=== PATIENT | female | born 1985 | race Caucasian/White ===

== ENCOUNTER 2017-07-10 04:00 | Inpatient (IN) | payer BC, MEDICAID ==
[2017-07-10 05:25] LABS: ADD MAN DIFF? NO
[2017-07-10 05:26] LABS: BASOPHILS % 0.4 % (0.0-2.0); EOSINOPHILS % 0.3 % (0.0-7.0); HEMATOCRIT 36.6 % (37.0-47.0); HEMOGLOBIN 12.3 g/dl (12.0-16.0); LYMPHOCYTES # 2.1 10^3/ul (0.8-2.9); LYMPHOCYTES % 19.2 % (15.0-51.0); MEAN CORPUSCULAR HEMOGLOBIN 30.4 pg (29.0-33.0); MEAN CORPUSCULAR HGB CONC 33.6 g/dl (32.0-37.0); MEAN CORPUSCULAR VOLUME 90.6 fl (82.0-101.0); MEAN PLATELET VOLUME 11.2 fl (7.4-10.4); MONOCYTE # 0.5 10^3/ul (0.3-0.9); MONOCYTES % 4.6 % (0.0-11.0); NEUTROPHIL # 8.2 10^3/ul (1.6-7.5); NEUTROPHILS % 74.2 % (39.0-77.0); PLATELET COUNT 216 10^3/UL (140-415); RED BLOOD COUNT 4.04 10^6/ul (4.20-5.40); RED CELL DISTRIBUTION WIDTH 14.2 % (11.5-14.5)
[2017-07-10] MEDS ORDERED: METHYLERGONOVINE 0.2 MG INJ IM ×2 (05:30→23:00)
[2017-07-10] MEDS ORDERED: OXYTOCIN 30 UNITS/LR 500 ML IV ×4 (05:30→23:00)
[2017-07-10] MEDS ORDERED: CARBOPROST 250 MCG INJ IM ×2 (05:30→23:00)
[2017-07-10] MEDS ORDERED: IBUPROFEN 600 MG TAB PO ×2 (05:30→23:00)
[2017-07-10] MEDS ORDERED: BUTORPHANOL 2 MG INJ IV (05:30)
[2017-07-10] MEDS ORDERED: MISOPROSTOL 200 MCG TAB PR ×2 (05:30→23:00)
[2017-07-10] MEDS ORDERED: LIDOCAINE 1% (MPF) 30 ML INJ INJ (05:30)
[2017-07-10 05:49] LABS: INR 0.92; PROTIME 12.4 Sec (11.9-14.9)
[2017-07-10] MEDS: FAMOTIDINE 20 MG INJ IV (05:52)
[2017-07-10] MEDS: LACTATED RINGER'S 1,000 ML IV ×6 (05:52→22:55)
[2017-07-10 06:23] LABS: PARTIAL THROMBOPLASTIN TIME 24.5 Sec (25.0-35.0)
[2017-07-10 06:29] LABS: HEPATITIS B SURFACE ANTIGEN NEGATIVE (NEGATIVE)
[2017-07-10] MEDS ORDERED: FENTAnyl 2MCG/ML-ROPIV 0.2% 100 ML (06:40)
[2017-07-10] MEDS ORDERED: LIDOCAINE 2% (SDV) 5 ML INJ (07:00)
[2017-07-10] MEDS ORDERED: NALOXONE (0.4 MG/ML) INJ IV ×2 (07:00→23:30)
[2017-07-10] MEDS: DEXTROSE 5%-LR 1,000 ML IV ×2 (12:25→20:06)
[2017-07-10] MEDS: OXYTOCIN 30 UNITS/LR 500 ML IV (12:27)
[2017-07-10] MEDS: FENTAnyl 2MCG/ML-ROPIV 0.2% 100 ML BAG EPI ×2 (15:07→21:58)
[2017-07-10] MEDS ORDERED: MINERAL OIL LIGHT 10 ML VIAL TOP (22:30)
[2017-07-10] MEDS: ONDANSETRON 4 MG INJ IV (22:38)
[2017-07-10] MEDS ORDERED: ONDANSETRON 4 MG INJ (22:41)
[2017-07-10] MEDS ORDERED: CITRIC ACID/SODIUM CITRATE 15 ML CUP (22:42)
[2017-07-10] MEDS ORDERED: CEFAZOLIN 2 GM/50 ML (PMX) 50 ML IVPB (22:44)
[2017-07-10] MEDS: CITRIC ACID/SODIUM CITRATE 15 ML CUP PO (23:00)
[2017-07-10] MEDS: CEFAZOLIN 1 GM/50 ML (PMX) 50 ML IV (23:00)
[2017-07-10] MEDS ORDERED: HYDROCODONE/APAP (5/325) TAB PO (23:00)
[2017-07-10] MEDS ORDERED: OXYTOCIN 10 UNIT INJ ×2 (23:01→23:20)
[2017-07-10] MEDS ORDERED: PHENYLephrine (100 MCG/ML) 5ML SYG (23:01)
[2017-07-10] MEDS ORDERED: METOCLOPRAMIDE 10 MG INJ (23:01)
[2017-07-10] MEDS ORDERED: FENTAnyl 50 MCG/ML VIAL (23:01)
[2017-07-10] MEDS ORDERED: morphine SULFATE/PF (10 MG/10 ML) INJ (23:01)
[2017-07-10 23:21] LABS: RAPID PLASMA REAGIN NONREACTIVE (NR)
[2017-07-10] MEDS ORDERED: EPHEDrine SULFATE 50 MG/5 ML SYG IV (23:30)
[2017-07-10] MEDS ORDERED: OXYCODONE/ACETAMINOPHEN (5/325) TAB PO ×2 (23:30)
[2017-07-10] MEDS ORDERED: MEPERIDINE 25 MG INJ IV (23:30)
[2017-07-10] MEDS ORDERED: TRIMETHOBENZAMIDE 100 MG/ML VIAL IM ×2 (23:30)
[2017-07-10] MEDS ORDERED: hydrALAzine 20 MG INJ IV (23:30)
[2017-07-10] MEDS ORDERED: LABETALOL HCL 20MG INJ IV (23:30)
[2017-07-10] MEDS ORDERED: ALBUTEROL 0.083% (NEB) 2.5 MG/3 ML AMP HHN (23:30)
[2017-07-10] MEDS ORDERED: FENTAnyl 50 MCG/ML VIAL IV ×3 (23:30)
[2017-07-10] MEDS ORDERED: ONDANSETRON 4 MG INJ IV ×2 (23:30)
[2017-07-10] MEDS ORDERED: MIDAZOLAM 1 MG/ML 2 ML INJ IV (23:30)
[2017-07-10] MEDS ORDERED: morphine 2 MG INJ IV ×2 (23:30)
[2017-07-10] MEDS ORDERED: NALBUPHINE HCL (10 MG/1 ML) INJ IV (23:30)
[2017-07-10] MEDS ORDERED: DIPHENHYDRAMINE 50 MG INJ IV ×2 (23:30)
[2017-07-10] MEDS ORDERED: IPRATROPIUM (NEB) 0.5 MG/2.5 ML AMP HHN (23:30)
[2017-07-10] MEDS ORDERED: HYDROmorphONE (0.2 MG/ML) 10ML SYG IV ×3 (23:30)
[2017-07-11] MEDS: KETOROLAC 30 MG INJ IV ×4 (00:19→20:57)
[2017-07-11] MEDS: CEFAZOLIN 2 GM/50 ML (PMX) 50 ML IVPB (01:17)
[2017-07-11] MEDS: OXYTOCIN 30 UNITS/LR 500 ML IV (01:26)
[2017-07-11] MEDS: CEFAZOLIN 1 GM/50 ML (PMX) 50 ML IV ×3 (06:33→22:59)
[2017-07-11 07:35] LABS: ADD MAN DIFF? NO
[2017-07-11 07:45] LABS: BASOPHILS % 0.2 % (0.0-2.0); HEMATOCRIT 28.5 % (37.0-47.0); HEMOGLOBIN 9.7 g/dl (12.0-16.0); LYMPHOCYTES # 1.1 10^3/ul (0.8-2.9); LYMPHOCYTES % 7.6 % (15.0-51.0); MEAN CORPUSCULAR HEMOGLOBIN 31.1 pg (29.0-33.0); MEAN CORPUSCULAR VOLUME 91.3 fl (82.0-101.0); MEAN PLATELET VOLUME 11.1 fl (7.4-10.4); MONOCYTE # 0.5 10^3/ul (0.3-0.9); MONOCYTES % 3.8 % (0.0-11.0); NEUTROPHIL # 12.1 10^3/ul (1.6-7.5); NEUTROPHILS % 87.6 % (39.0-77.0); PLATELET COUNT 175 10^3/UL (140-415); RED BLOOD COUNT 3.12 10^6/ul (4.20-5.40); RED CELL DISTRIBUTION WIDTH 14.2 % (11.5-14.5)
[2017-07-11 07:45] LABS: WHITE BLOOD COUNT 13.8 10^3/ul (4.8-10.8)
[2017-07-11] MEDS: LACTATED RINGER'S 1,000 ML IV ×2 (10:21→14:55)
[2017-07-12] MEDS: HYDROCODONE/APAP (5/325) TAB PO (07:00)
[2017-07-12] MEDS: LACTATED RINGER'S 1,000 ML IV ×3 (07:31→14:55)
[2017-07-12 11:30] LABS: RHOGAM PROFILE 1 1
[2017-07-12] MEDS: IBUPROFEN 600 MG TAB PO ×2 (16:11→23:05)
[2017-07-12] MEDS: ACETAMINOPHEN 325 MG TAB PO (18:28)
[2017-07-13] MEDS: IBUPROFEN 600 MG TAB PO (06:19)
[2017-07-13] MEDS: LACTATED RINGER'S 1,000 ML IV ×3 (06:55→14:55)
== END 2017-07-13 14:05 | disposition home or self-care (01) | DRG 765 ==
LOC: OBT 04:00 → PP1 07-11 02:39 → L-D 04:00 → OBT 04:30 → L-D 04:30
PROVIDERS: Obstetrics & Gynecology
PROC: 10D00Z1 Extraction of Products of Conception, Low, Open Approach (ICD-10-PCS; principal; 2017-07-10)
PROC: 3E033VJ Introduction of Other Hormone into Peripheral Vein, Percutaneous Approach (ICD-10-PCS; 2017-07-10)
DX: O48.0 Post-term pregnancy (principal); O75.2 Pyrexia during labor, not elsewhere classified; Z3A.40 40 weeks gestation of pregnancy; O76 Abnormality in fetal heart rate and rhythm complicating labor and delivery; Z37.0 Single live birth
CPT/HCPCS: 62319; 85025; 85610; 85730; 86592; 86850; 86885; 86900; 86901; 86920; 87340; 99464